=== PATIENT | male | born 1945 | race Caucasian/White ===

== ENCOUNTER 2024-01-02 18:12 | Inpatient (IN) | payer MEDICARE, BC ==
[~2024-01-02] VITALS: Ht 180.3 cm; Wt 101.2 kg
[2024-01-02 19:28] LABS: BASOPHILS # (AUTO) 0.2 K/UL (0.0-0.2); BASOPHILS % (AUTO) 2.3 % (0.0-2.0); EOSINOPHILS # (AUTO) 0.2 K/uL (0.0-0.7); EOSINOPHILS % (AUTO) 2.3 % (0.0-7.0); HEMATOCRIT 28.7 % (36.7-47.1); HEMOGLOBIN 9.5 g/dL (12.5-16.3); LYMPHOCYTES # (AUTO) 0.4 K/uL (0.8-4.8); LYMPHOCYTES % (AUTO) 3.5 % (20.5-51.5); MEAN CORPUSCULAR HEMOGLOBIN 29.1 uug (23.8-33.4); MEAN CORPUSCULAR HGB CONC 33 g/dL (32.5-36.3); MEAN CORPUSCULAR VOLUME 87.5 fL (73.0-96.2); MONOCYTES # (AUTO) 0.5 K/uL (0.1-1.30); MONOCYTES % (AUTO) 5.2 % (0.0-11.0); NEUTROPHILS # (AUTO) 8.9 K/uL (1.8-8.9); NEUTROPHILS % (AUTO) 86.7 % (38.5-71.5); PLATELET COUNT (AUTO) 153 K/uL (152-348); RED BLOOD CELL COUNT(AUTO) 3.28 MIL/uL (4.06-5.63); RED CELL DISTRIBUTION WIDTH 14.6 % (12.1-16.2); WHITE BLOOD COUNT (AUTO) 10.3 K/uL (3.6-10.2)
[2024-01-02 19:40] LABS: DIFFERENTIAL COMMENT 1
[2024-01-02 19:49] LABS: ALANINE AMINOTRANSFERASE 27 U/L (16-63); ALBUMIN 2.9 g/dL (3.4-5.0); ALKALINE PHOSPHATASE 108 U/L (50-136); ASPARTATE AMINOTRANSFERASE 20 U/L (15-37); BILIRUBIN,TOTAL 0.3 mg/dL (0.2-1.0); CARBON DIOXIDE 28 mmol/L (21-32); CHLORIDE 98 mmol/L (98-107); CREATININE 7.1 mg/dL (0.6-1.3); GLUCOSE 209 mg/dL (74-106); MAGNESIUM 2.4 mg/dL (1.8-2.4); POTASSIUM 5.1 mmol/L (3.5-5.1); SODIUM SERUM 136 mmol/L (136-145); UREA NITROGEN, BLOOD 40 mg/dL (7-18)
[2024-01-03] MEDS ORDERED: ACETAMINOPHEN 325 MG TABLET PO PRN (02:15)
[2024-01-03] MEDS ORDERED: ONDANSETRON 4 MG/2 ML VIAL IV PRN (02:15)
[2024-01-03] MEDS ORDERED: hydrALAZINE HCL 25 MG TABLET PO PRN (02:15)
[2024-01-03 02:36] VITALS: BP 131/68; TEMP 97.6; O2SAT 96
[2024-01-03 04:19] VITALS: O2SAT 95
[2024-01-03] MEDS: ALBUTEROL SULFATE 2.5 MG/3 ML NEBU NEB PRN (04:19)
[2024-01-03 04:29] VITALS: O2SAT 98
[2024-01-03 07:52] VITALS: BP 119/56; TEMP 97.8; O2SAT 98
[2024-01-03] MEDS: PANTOPRAZOLE SODIUM 40 MG TABLET.DR PO SCH (09:26)
[2024-01-03 11:57] VITALS: BP 122/54; TEMP 98.1; O2SAT 97
[2024-01-03 16:09] VITALS: O2SAT 97
== END 2024-01-03 15:45 | disposition left against medical advice (07) | DRG 314 ==
LOC: ER 18:14 → TELE3 22:35
PROVIDERS: ADMIT Internal Medicine; ATTEND Internal Medicine
DX: T82.838A Hemorrhage due to vascular prosthetic devices, implants and grafts, initial encounter (principal); N18.6 End stage renal disease; I13.2 Hypertensive heart and chronic kidney disease with heart failure and with stage 5 chronic kidney disease, or end stage renal disease; I50.32 Chronic diastolic (congestive) heart failure; D63.1 Anemia in chronic kidney disease; R53.1 Weakness; D50.0 Iron deficiency anemia secondary to blood loss (chronic); E11.22 Type 2 diabetes mellitus with diabetic chronic kidney disease; Z99.2 Dependence on renal dialysis; J44.9 Chronic obstructive pulmonary disease, unspecified; Q78.9 Osteochondrodysplasia, unspecified
CPT/HCPCS: 36415; 71045; 83735; 85025; 86850; 86900; 86901; 94640; 94760; A4606; A4663; G0378